=== PATIENT | male | born 1995 | race Caucasian/White ===

== ENCOUNTER 2017-10-06 09:54 | Emergency (ER) | payer OTHER ==
--- NOTE | 2017-10-06 11:54 | UC ---
Skin Complaint HPI - HPI Summary HPI Summary: Pt presents with tick bite to right posterior arm 1 week ago. Over the last 2-3 days has felt like he has general aches and fatigue. Is concerned about lyme. He said he removed the tick himself and thinks it was on there about 3 days and was engorged. Denies fever, chills, sore throat, SOB, chest pain, abdominal pain , n/v/d/c. - History of Current Complaint Chief Complaint: UCGeneralIllness Time Seen by Provider: 10/06/17 11:54 Stated Complaint: TICK BITE Hx Obtained From: Patient Onset/Duration: Gradual Onset Current Severity: Mild Pain Intensity: 2 Pain Scale Used: 0-10 Numeric - Allergy/Home Medications Allergies/Adverse Reactions: Allergies Allergy/AdvReac Type Severity Reaction Status Date / Time adhesive Allergy Rash And Verified 10/06/17 10:07 Itching aloe Allergy Hives Verified 10/06/17 10:07 bee venom protein (honey bee) Allergy Anaphylatic Verified 10/06/17 10:07 Shock coconut oil Allergy Rash And Verified 10/06/17 10:07 Itching garlic Allergy Constipatio Verified 10/06/17 10:07 n latex Allergy Anaphylatic Verified 10/06/17 10:07 Shock shellfish derived Allergy Swelling Verified 10/06/17 10:07 Of Face,Lips,& Throat Home Medications: Home Medications NK [No Home Medications Reported] 10/06/17 [History Confirmed 10/06/17] Review of Systems Constitutional: Fatigue, Other - Aches Skin: Negative Eyes: Negative ENT: Negative Respiratory: Negative Cardiovascular: Negative Gastrointestinal: Negative Genitourinary: Negative Neurovascular: Negative Musculoskeletal: Negative Neurological: Negative Psychological: Negative All Other Systems Reviewed And Are Negative: Yes PMH/Surg Hx/FS Hx/Imm Hx - Additional Past Medical History Additional PMH: None Previously Healthy: Yes - Surgical History Surgical History: None - Family History Known Family History: Positive: None - Social History Occupation: Employed Full-time Lives: With Family Alcohol Use: Weekly Substance Use Type: Marijuana Substance Use Comment - Amount & Last Used: occassionally Smoking Status (MU): Light Every Day Tobacco Smoker Type: eCigarettes Amount Used/How Often: 2 cig/daily - Immunization History Most Recent Influenza Vaccination: 03/29/13 Most Recent Tetanus Shot: unable to recall Most Recent Pneumonia Vaccination: NA Physical Exam - Summary Physical Exam Summary: GENERAL: NAD. WDWN. No pain distress. SKIN: Right posterior upper arm at area of tick bite is WITHOUT erythema, edema , or drainage. No rash anywhere on body HEENT: Head: AT/NC Eyes: EOM intact. Conjunctiva clear without inflammation or discharge. Ears: Hearing grossly normal. TMs intact, no bulging, erythema, or edema. Nose: Nasal mucosa pink and moist. NTTP maxillary and frontal sinus. Throat: Posterior oropharynx without exudates, erythema, or tonsillar enlargement. Uvula midline. NECK: Supple. Nontender. No lymphadenopathy. CHEST: CTAB. No r/r/w. No accessory muscle use. Breathing comfortably and in no distress. CV: RRR. Without m/r/g. Pulses intact. Brisk cap refill. NEURO: Alert. CN II-XII grossly intact. PSYCH: Age appropriate behavior. Triage Information Reviewed: Yes Vital Signs: Initial Vital Signs Temp 98.6 F 10/06/17 10:07 Pulse 73 10/06/17 10:07 Resp 18 10/06/17 10:07 BP 118/77 10/06/17 10:07 Pulse Ox 98 10/06/17 10:07 Course/Dx - Course Course Of Treatment: I had a long discussion with the patient regarding his symptoms and that they were a bit early for lyme disease symptoms, lyme tramission rates are low, and his symptoms are vague are not characteristic of lyme. Serologic testing would very likely be negative until at like 4-6 weeks post tick bite. I offered him the treatment for lyme or the option to wait and see if his symptoms improve/worsen. He elected to wait and monitor his symptoms and will return if he develops changes. - Diagnoses Provider Diagnoses: Tick bite. Body aches Discharge - Sign-Out/Discharge Documenting (check all that apply): Discharge/Admit/Transfer - Discharge Plan Condition: Stable Disposition: HOME Patient Education Materials: Lyme Disease (ED), Tick Bite (ED) Referrals: No Primary Care Phys,NOPCP [Primary Care Provider] - Additional Instructions: If you develop a fever, shortness of breath, chest pain, new or worsening symptoms - please call your PCP or go to the ED. TICK BITE: You have been bitten by a tick. Once the tick is removed, these "bites" usually cause no problems. Tick fever, tick paralysis, [place] Spotted fever, and Lyme disease are uncommon -- but you should mention this tick bite to your doctor if you develop unusual symptoms in the 2-3 weeks. If you develop any of the following, please see your physician promptly: (1) Fever, chills, or generalized malaise associated with a headache. (2) A red round area at the site of the bite (or elsewhere) (3) Joint pain, joint swelling or generalized weakness. (4) Redness, swelling, or drainage at the site of the bite. - Billing Disposition and Condition Condition: STABLE Disposition: HOME
[2017-10-06 13:04] VITALS: BP 120/76
== END 2017-10-06 12:35 | disposition home or self-care (01) ==
LOC: UCEAST 09:54
DX: S40.861A Insect bite (nonvenomous) of right upper arm, initial encounter (principal); W57.XXXA Bitten or stung by nonvenomous insect and other nonvenomous arthropods, initial encounter; Y92.9 Unspecified place or not applicable; F17.210 Nicotine dependence, cigarettes, uncomplicated
CPT/HCPCS: 99202; G0463

== ENCOUNTER 2019-01-25 18:42 | Emergency (ER) | payer BC, OTHER ==
[2019-01-25 18:51] VITALS: BP 134/87
--- NOTE | 2019-01-25 19:27 | ED ---
Bite Injury/Animal - HPI Summary HPI Summary: This patient is a 23 year old M presenting to [facility] accompanied by a female assembly line worker with a chief complaint of spider bites on his right hand since 2 days ago. Pt states he woke up 2 days ago when he noticed the bites. He says clear fluid came out of them when the cysts popped. Pt notes that his upper right arm feels bruised and reports pain in the area. Pt denies itchiness. The pt rates the pain 2/10 in severity. Symptoms aggravated by nothing. Symptoms alleviated by nothing. 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 He does not take any medications and denies allergies to any medications. - History of Current Complaint Chief Complaint: EDExtremityUpper Stated Complaint: SPIDER BITE, ARM TURNING RED PER PT Time Seen by Provider: 01/25/19 19:13 Hx Obtained From: Patient, Other: - female assembly line worker Onset of Injury: Happened days ago - 2, Still Present Type of Bite: Animal - spider Severity Initially: Mild Severity Currently: Mild Pain Intensity: 2 Pain Scale Used: 0-10 Numeric Aggravating Factor(s): Nothing Alleviating Factor(s): Nothing - Allergies/Home Medications Allergies/Adverse Reactions: Allergies Allergy/AdvReac Type Severity Reaction Status Date / Time adhesive Allergy Rash And Verified 10/06/17 10:07 Itching aloe Allergy Hives Verified 10/06/17 10:07 bee venom protein (honey bee) Allergy Anaphylatic Verified 10/06/17 10:07 Shock coconut oil Allergy Rash And Verified 10/06/17 10:07 Itching garlic Allergy Constipatio Verified 10/06/17 10:07 n latex Allergy Anaphylatic Verified 10/06/17 10:07 Shock shellfish derived Allergy Swelling Verified 10/06/17 10:07 Of Face,Lips,& Throat PMH/Surg Hx/FS Hx/Imm Hx Previously Healthy: No Sensory History: Denies: Hx Cataracts Opthamlomology History: Denies: Hx Cataracts EENT History: Denies: Hx Deafness, Hx Auditory Problems Psychiatric History: Reports: Hx Inpatient Treatment, Hx Bipolar Disorder Denies: Hx Eating Disorder, Hx of Violent Episodes Against Others - Surgical History Surgical History: None Infectious Disease History: No Infectious Disease History: Denies: Traveled Outside the [place] in Last 30 Days - Family History Known Family History: Positive: None - Social History Alcohol Use: Weekly Substance Use Type: Reports: Marijuana Substance Use Comment - Amount & Last Used: occassionally Smoking Status (MU): Light Every Day Tobacco Smoker Type: eCigarettes Amount Used/How Often: 2 cig/daily Review of Systems Musculoskeletal: Other - positive - upper right arm pain, pt states it feels bruised. Skin: Other - positive - spider bites on his right hand, bite cysts had clear fluid coming out when popped All Other Systems Reviewed And Are Negative: Yes Physical Exam - Summary Physical Exam Summary: Appearance: Well-appearing, Well-nourished, lying in bed comfortably Skin: Warm, dry. Right hand base middle finger into proximal of palm are vesicular lesions on erythematous bases. Lymphangitic streaking into forearm past elbow Eyes: sclera anicteric, no conjunctival pallor ENT: mucous membranes moist, pharynx appears normal Neck: Supple, nontender Respiratory: Clear to auscultation, no signs of respiratory distress Cardiovascular: Normal S1, S2. No murmurs. Normal distal pulses in tibial and radial bilaterally. Abdomen: Soft, nontender, normal active bowel sounds present Musculoskeletal: Normal, Strength/ROM Intact Neurological: A&Ox3, awake and alert, mentation is normal, speech is fluent and appropriate Psychiatric: affect is normal, does not appear anxious or depressed Triage Information Reviewed: Yes Vital Signs On Initial Exam: Initial Vitals Temp Pulse Resp BP Pulse Ox 99.9 F 90 18 134/87 97 01/25/19 18:47 01/25/19 18:47 01/25/19 18:47 01/25/19 18:47 01/25/19 18:47 Vital Signs Reviewed: Yes Diagnostics - Vital Signs Vital Signs Temp Pulse Resp BP Pulse Ox 01/25/19 18:47 99.9 F 90 18 134/87 97 - Laboratory Lab Statement: Any lab studies that have been ordered have been reviewed, and results considered in the medical decision making process. Bite Injury Course/Dx - Course Course Of Treatment: This patient is a 23 year old M presenting to [facility] accompanied by a female assembly line worker with a chief complaint of spider bites on his right hand since 2 days ago. Pt states he woke up 2 days ago when he noticed the bites. He says clear fluid came out of them when the cysts popped. Pt notes that his upper right arm feels bruised and reports pain in the area. Pt denies itchiness. The pt rates the pain 2/10 in severity. Symptoms aggravated by nothing. Symptoms alleviated by nothing. 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 He does not take any medications and denies allergies to any medications. Physical exam shows right hand base middle finger into proximal of palm having vesicular lesions on erythematous bases and lymphangitic streaking into forearm past elbow. - Diagnoses Provider Diagnosis: Herpetic rosalba Discharge - Sign-Out/Discharge Documenting (check all that apply): Patient Departure - discharge Patient Received Moderate/Deep Sedation with Procedure: No - Discharge Plan Condition: Good Disposition: HOME Prescriptions: Acyclovir* [Zovirax 400 MG TAB*] 400 mg PO 5ID #25 tab Referrals: [facility] [Outside] - If Needed Additional Instructions: I believe this is a viral infection called herpetic rosalba. It usually takes a couple of weeks to run its course, with or without treatment, but my hope is by taking the anti viral medicine you will shorten your illness and reduce viral shedding. Wear gloves at work, as the lesions are infectious and can be especially problematic to people who are immune suppressed, such as cancer or transplant patients. - Billing Disposition and Condition Condition: GOOD Disposition: Home - Attestation Statements Document Initiated by Kyle: Yes Documenting Scribe: Eddi Chen Provider For Whom Kyle is Documenting (Include Credential): Dr. Jens Vickers MD Scribe Attestation: I, Eddi Chen scribed for Dr. Jens Vickers MD on 01/26/19 at 0415. Scribe Documentation Reviewed: Yes Provider Attestation: The documentation as recorded by the Eddi whitman accurately reflects the service I personally performed and the decisions made by me, Dr. Jens Vickers MD Status of Scrdeborah Document: Viewed
--- NOTE | 2019-01-28 09:48 | PN ---
Progress Note - Progress Note Date of Service: 01/28/19 Note: patent hsv II positive. patient currently being treated for hsv so no further treatment required
== END 2019-01-25 19:38 | disposition home or self-care (01) ==
LOC: ED 18:42
DX: B00.89 Other herpesviral infection (principal); F17.290 Nicotine dependence, other tobacco product, uncomplicated; Z91.040 Latex allergy status
CPT/HCPCS: 87529; 99282